=== PATIENT | male | born 1970 | race Two or more races ===

== ENCOUNTER 2020-12-21 11:25 | Emergency (ER) | payer BC ==
[~2020-12-21] VITALS: Ht 177.8 cm; Wt 74.8 kg
[2020-12-21] MEDS ORDERED: CEPHALEXIN500 MG ORAL (11:44)
[2020-12-21] MEDS ORDERED: BACTRIM DS TAB1 EAC1 ORAL (11:44)
--- NOTE | 2020-12-21 11:53 | Emergency Room Report ---
History of Present Illness General Chief Complaint: Skin Rash/Abscess Source: Patient Present Illness HPI Patient is a 50-year-old male who presents for increased fever and chills. Patient had prior history of type 2 diabetes. Had recently been put on antibiotics for an infected wound to his buttock. Prior history of HIV. Currently on medications. He reports his last viral load was undetectable and had adequate CD4 count at that time. Prior history of type 2 diabetes for which he takes insulin. Patient reports having discontinued his antibiotics. No vomiting or diarrhea. Patient had recent incision and drainage procedure to abscess. He reports this has been improving. He states that he had recently been exposed to his daughter who had a coronavirus infection. Allergies: Coded Allergies: No Known Allergies (Unverified , 12/21/20) COVID-19 Screening Contact w/high risk pt: No Experienced COVID-19 symptoms?: No COVID-19 Testing performed ELASTIC TAPE INSERTER: No Patient History Past Medical History: see triage record Reviewed Nursing Documentation: PMH: Agreed; PSxH: Agreed Nursing Documentation-PMH Past Medical History: No History, Except For Hx Diabetes: Yes Review of Systems All Other Systems: negative except mentioned in HPI Physical Exam Vital Signs Date Time Temp Pulse Resp B/P (MAP) Pulse Ox O2 Delivery O2 Flow Rate FiO2 12/21/20 11:31 98.4 98 20 132/87 (102) 96 Room Air Sp02 EP Interpretation: reviewed, normal General Appearance: normal inspection, well appearing, no apparent distress, alert, GCS 15, non-toxic Head: atraumatic ENT: normal ENT inspection, hearing grossly normal, normal voice Neck: normal inspection, full range of motion, supple, no bony tend Respiratory: normal inspection, lungs clear, normal breath sounds, no respiratory distress, no retraction, no wheezing Cardiovascular #1: regular rate, rhythm, no edema Gastrointestinal: normal inspection, normal bowel sounds, non tender, soft, no guarding, no hernia Genitourinary: no CVA tenderness Musculoskeletal: normal inspection, back normal, normal range of motion Neurologic: alert, responsive, speech normal, normal inspection Psychiatric: normal inspection, judgement/insight normal, mood/affect normal Skin: other - Incision and drainage site with minimal eschar without any evidence of surrounding erythema or fluctuance. Medical Decision Making Diagnostic Impression: Primary Impression: Suspected COVID-19 virus infection ER Course Patient presented for fever. Differential diagnosis include was not limited to coronavirus infection, pneumonia, abscess, among others. Laboratory testing was essentially unremarkable. Coronavirus testing was sent. Patient appears to be hemodynamically stable and does not appear to have any evidence of systemic toxicity at this time. Patient's physical exam findings were discussed with Dr. Florence who is the patient's primary care physician. The patient is advised to follow up with primary care doctor in 1-2 days. Patient is advised to return if any worsening condition or if any changes in status that are concerning. This report is dictated with [employer] for [employer] terminal block assembler software which may occasionally lead to discrepancies related to use of this software. Last Vital Signs Date Time Temp Pulse Resp B/P (MAP) Pulse Ox O2 Delivery O2 Flow Rate FiO2 12/21/20 11:31 98.4 98 20 132/87 (102) 96 Room Air Status: improved Disposition: HOME, SELF-CARE Condition: Stable Jeffry Lopez MD Dec 21, 2020 11:53
[2020-12-21 12:24] VITALS: BP 132/87
[2020-12-21 12:46] LABS: ANION GAP 8 mmol/L (5-15); BLOOD UREA NITROGEN 21 mg/dL (7-18); CALCIUM 8.9 MG/DL (8.5-10.1); CARBON DIOXIDE 27 MMOL/L (21-32); CHLORIDE 102 MMOL/L (98-107); CREATININE 0.9 MG/DL (0.55-1.30); POTASSIUM 4.2 MMOL/L (3.5-5.1); SODIUM 137 MMOL/L (136-145)
[2020-12-21 12:48] LABS: BASOPHILS % (AUTO) 0.8 % (0.0-2.0); EOSINOPHILS % (AUTO) 5.6 % (0.0-3.0); HEMATOCRIT 45.1 % (42.0-52.0); HEMOGLOBIN 15.3 G/DL (14.2-18.0); LYMPHOCYTES % (AUTO) 15.5 % (20.0-45.0); MEAN CORPUSCULAR VOLUME 83 FL (80-99); MONOCYTES % (AUTO) 18.4 % (1.0-10.0); NEUTROPHILS % (AUTO) 59.7 % (45.0-75.0); PLATELET COUNT 196 K/UL (150-450); RED BLOOD COUNT 5.44 M/UL (4.70-6.10); RED CELL DISTRIBUTION WIDTH 11.9 % (11.6-14.8); WHITE BLOOD COUNT 7.1 K/UL (4.8-10.8)
[2020-12-21 12:51] LABS: ALANINE AMINOTRANSFERASE 56 U/L (12-78); ALBUMIN 3.2 G/DL (3.4-5.0); ALBUMIN/GLOBULIN RATIO 0.6 (1.0-2.7); ALKALINE PHOSPHATASE 88 U/L (46-116); ASPARTATE AMINO TRANSFERASE 29 U/L (15-37); BILIRUBIN,TOTAL 0.6 MG/DL (0.2-1.0)
[2020-12-21] MEDS: cefTRIAXone 1 GM in NS 55 ML IVPB ONE (12:59)
[2020-12-21 14:17] VITALS: BP 122/69
== END 2020-12-21 14:24 | disposition home or self-care (01) ==
LOC: EMR 11:50
DX: Z20.822 Contact with and (suspected) exposure to COVID-19 (principal); R50.9 Fever, unspecified; E11.9 Type 2 diabetes mellitus without complications; Z21 Asymptomatic human immunodeficiency virus [HIV] infection status
CPT/HCPCS: 36415; 80053; 82962; 85025; 96361; 96365; 99284; J0696; U0004